=== PATIENT | male | born 1955 | race Caucasian/White ===

== ENCOUNTER 2020-06-02 17:19 | Emergency (ER) | payer OTHER, BC, SELFPAY ==
--- NOTE | ~2020-06-02 | XR_ITS ---
XR finger 4th LT min 2V 06/02/2020 18:17 Indication: Multiple open wounds of the fourth finger. Left fourth finger pain. Procedure: 3 views left fourth finger Comparison: No prior studies for comparison. Findings: There are mild degenerative changes of the proximal interphalangeal joint. Fixed flexion no darrion at the distal interphalangeal joint. There is mild soft tissue swelling. No foreign bodies. No ev idence for underlying osteomyelitis. No acute fracture or traumatic malalignment. Impression: 1: No acute bone or joint abnormality. Reviewed, dictated and finalized at location A. PASTER Impression: 1: No acute bone or joint abnormality.
[2020-06-02 17:53] VITALS: BP 164/79; PULSE 73; RESP 16; TEMP 36.7; O2SAT 98
[2020-06-02] MEDS: TETANUS,DIPHTHERIA,AC PERTUSSIS ADULT (0.5 ML) BOOSTRIX IM (18:02)
--- NOTE | 2020-06-02 19:58 | ED.GENADULT ---
HPI - General Adult General Chief complaint: Wound/Laceration Stated complaint: laceration to left hand Time Seen by Provider: 06/02/20 17:38 Source: patient Mode of arrival: ambulatory Limitations: no limitations History of Present Illness HPI narrative: Patient is a 64-year-old male who presents with injury to the fourth left finger AKA of the ring finger patient had a caught in the chain on an electric gait. Patient presents with laceration deformity to the distal phalanx. Patient notes his tetanus did not be up-to-date. Patient notes mild aching pain worse with touch and activity presents immediately after the injury Related Data Allergies Allergy/AdvReac Type Severity Reaction Status Date / Time atorvastatin Allergy Unknown Other Verified 06/02/20 17:57 amoxicillin [From Augmentin] Allergy Other Verified 06/02/20 17:57 clavulanic acid Allergy Other Verified 06/02/20 17:57 [From Augmentin] Review of Systems Review of Systems: All systems reviewed & are unremarkable except as noted in HPI and below PMFSH Family History Family History (Updated 02/05/14 @ 07:13 by DOCTOR UNKNOWN) Father Family history of lung cancer Social History Social History Smoking status: Never smoker Alcohol intake: never Exam Narrative: Exam Narrative: GENERAL: Well-appearing, well-nourished, and in no acute distress. HEAD: Normocephalic, atraumatic. EYES: PERRLA and EOMI. ENT: Nares clear, no rhinorrhea or epistaxis. Mucous membranes moist. EXTREMITIES: Normal range of motion. No edema. Patient with lacerations of the distal phalanx of the left ring finger with disruption of the nail with mallet finger involving the DIP joint SKIN: Warm, dry, no rash. NEURO: No focal deficits. Alert and oriented x3. Neurovascularly intact. Capillary refill less than 2 seconds PSYCH: Normal mood and affect. Course Consultations Consultation #1: Discussed case with hand surgeon who would like the patient to call the office tomorrow to set up for the appointment Date: 06/02/20 Time: 20:03 Vital Signs Vital signs: Vital Signs Temperature 98.1 F 06/02/20 17:53 Pulse Rate 73 06/02/20 17:53 Respiratory Rate 16 06/02/20 17:53 Blood Pressure 164/79 H 06/02/20 17:53 Pulse Oximetry 98 06/02/20 17:53 Temperature 98.1 F 06/02/20 17:53 Pulse Rate 73 06/02/20 17:53 Respiratory Rate 16 06/02/20 17:53 Blood Pressure 164/79 H 06/02/20 17:53 Pulse Oximetry 98 06/02/20 17:53 Procedures Laceration Laceration 1: Date: 06/02/20 Time: 20:04 Site: upper extremity Side (If applicable): left Size (cm): 2 Description: irregular Depth: simple, single layer Local Anesthetic: lidocaine 1% Pre-repair: wound explored, irrigated, irrigated extensively and minor debridement ====== Skin Level ====== Skin layer closed with: nylon Size (cm): 4-0 Number of sutures: 7 ====== Subcutaneous Layer ====== ====== Muscle Layer ====== ====== Tendon Layer ====== Dressing: Patient's wounds were closed in the emergency department will follow with hand surgery for further evaluation of his tendon injury patient neurovascularly intact pre and post procedure. Placed in a metal finger splint with Coban nonadhesive 4 x 4 and antibiotic ointment Medical Decision Making MDM Narrative Medical decision making narrative: Patients injury or pain is consistent with musculoskeletal etiology. No signs of neurological or vascular compromise on exam. Pain is felt appropriate for further evaluation on an outpatient basis. Vital Signs Vital Signs: Vital Signs Temperature 98.1 F 06/02/20 17:53 Pulse Rate 73 06/02/20 17:53 Respiratory Rate 16 06/02/20 17:53 Blood Pressure 164/79 H 06/02/20 17:53 Pulse Oximetry 98 06/02/20 17:53 Temperature 98.1 F 06/02/20 17:53 Pulse Ra
[2020-06-02] MEDS: CEPHALEXIN 500 MG CAPSULE PO (20:22)
== END 2020-06-02 20:24 | disposition home or self-care (01) ==
PROVIDERS: Emergency Provider Emergency Medicine; PCP Family Medicine
DX: S61.215A Laceration without foreign body of left ring finger without damage to nail, initial encounter (principal); S66.315A Strain of extensor muscle, fascia and tendon of left ring finger at wrist and hand level, initial encounter; Z23 Encounter for immunization; W23.1XXA Caught, crushed, jammed, or pinched between stationary objects, initial encounter
CPT/HCPCS: 12001; 73140; 90471; 90715; 99283; A9270

== ENCOUNTER 2020-11-25 15:30 | Outpatient (RCR) | payer OTHER, BC, SELFPAY ==
--- NOTE | 2020-11-03 13:20 | OTOPEVAL ---
OCCUPATIONAL THERAPY INITIAL EVALUATION 11/03/20 Patient presents 5 months s/p crush injury with a non-bony mallet to the left ring finger. Actively the DIP rests in 20* flexion and passively he is able to achieve 0*. Instructed in active ROM and equipment processor/pinch strengthening and patient demonstrates good understanding of these. Educated on watching for increased extension lag in the DIP and to return to splint wear if this occurs. Overall the patient has good understanding of his HEP and does not need formal therapy sessions at this time. Plan to have the patient follow up in 3 weeks for re-eval to assess improvements in strength/ROM and to assess extension lag. Thank you for referring Stephan Tirado to [facility].? The patient is scheduled to be seen for therapy re-evaluation in 3 weeks. Please review, sign, date and return this plan of care ALICIA. I agree with and certify that the following plan of care is medically necessary. Referring Physician Date Referring Provider: John Rutledge MD *OT Outpatient Evaluation Start: 11/03/20 12:38 Freq: Status: Active Protocol: Document 11/03/20 12:38 KORI (Rec: 11/03/20 13:19 KORI [email or web address]) Therapy Assessment Status Assessment Status Assessment Status Evaluation Outpatient Past Medical History Past Medical History Source of Past Medical History Recalled from Previous Visit, Confirmed with Patient/Family Neurological History Hx Neurological Disorders No Significant History Cardiovascular History Hx Cardiac Disorders No Significant History Respiratory History Hx Respiratory Disorders No Significant History Gastrointestinal History Hx Gastrointestinal Disorders No Significant History Genitourinary History Hx Genitourinary Disorders No Significant History Hematological History Hx Hematological Disorders No Significant History Endocrine History Hx Diabetes Yes: DM II HEENT History Hx HEENT Disorders No Significant History Integumentary History Hx Skin Disorders No Significant History Reproductive History Hx Reproductive Disorders No Significant History Psychosocial History Hx Psychiatric Disorders No Significant History Pain History History of Any Previous or Ongoing No Significant History Instance of Pain Evaluation Information Problem Diagnosis Stiffness of left ring finger Additional Evaluation Detail 06/02/20 - crush injury to left ring, non-bony mallet; wound was closed in ER, x-ray showed no fracture. He is s/p Stax splint wear x6. He has not been wearing anything on the finger for a while now. Subjective Information Patient reports finger Query Text:As Reported By Patient/ stiffness, particularly worse Family in the AM. Pain with gross
--- NOTE | 2020-11-22 15:51 | PCOTNOTE ---
Patient did not show up for scheduled appointment this date. Today was patient's re-eval. Attempted to call and patient did not answer. Left voicemail regarding missed appt.
--- NOTE | 2020-11-25 15:41 | OTOPEVAL ---
OCCUPATIONAL THERAPY RE-EVALUATION AND D/C SUMMARY Patient presents for OT re-evaluation after completing ROM and strengthening HEP x3 weeks. Right hand active fist improved to 95% normal, per patient report. DIP extension lag remained unchanged since beginning HEP (20* of flexion). Active flexion of all digits on the left hand improved and he reports return to normal functional use. No further skilled OT is indicated at this time as the therapy goals have been met. Thank you for referring Stephan Tirado to [facility].?Please review, sign, date and return this D/C Note ALICIA. I agree with and certify that the following plan of care is medically necessary. Referring Physician Date Admitting Provider: Attending Provider: John Rutledge MD Referring Provider: *OT Outpatient Evaluation Start: 11/03/20 12:38 Instance of Pain Evaluation Information Problem Diagnosis Stiffness of left ring finger Additional Evaluation Detail 06/02/20 - crush injury to left ring, non-bony mallet; wound was closed in ER, x-ray showed no fracture. He is s/p Stax splint wear x6. He has not been wearing anything on the finger for a while now. Subjective Information Patient reports he has been Query Text:As Reported By Patient/ completing active ROM 2x/day Family and resistive strengthening with putty 1x/day for the last 3 weeks. He reports improved flexibility and strength since completing this home program. He reports a marked decrease in pain. He reports some residual numbness at the incision, but no longer reports any sensitivity. Pain Assessment Timing of Pain Assessment Timing of Pain Assessment Assessment Pain Scale Pain Scale Used Numeric (1 - 10) Self Report Pain Assessment Left Finger, Ring Reported Pain Level 0 Lowest Pain Intensity 0 Greatest Pain Intensity 2 Pain Score Pain Score 0: Self Report Additional Pain Score Comments Patient reports pain usually is at 0/10. He had one occurrence of 2/10 pain. Upper Extremity Range of Motion Finger Range of Motion Left Index Finger MCP Joint Flexion - Active 60 Index Finger PIP Joint Flexion - Active 90 Index Finger DIP Joint Flexion - Active 70 Middle Finger MCP Joint Flexion - Active 70 Middle Finger PIP Joint Flexion - Active 95 Middle Finger DIP Joint Flexion - Active 80 Ring Finger MCP Joint Flexion - Active 80 Ring Finger PIP Joint Flexion - Active 95 Ring Finger DIP Joint Flexion - Active 80 Ring Finger DIP Ex
== END 2020-11-26 09:20 | disposition home or self-care (01) ==
LOC: ANHOT 15:30
PROVIDERS: Visit Provider Plastic Surgery
DX: M25.642 Stiffness of left hand, not elsewhere classified (principal)
CPT/HCPCS: 97110; 97165